=== PATIENT | female | born 1965 | race Caucasian/White ===

== ENCOUNTER 2016-11-02 15:06 | Emergency (ER) | payer OTHER, MEDICAID ==
--- NOTE | 2016-11-02 16:20 | EDPHY ---
H & P Stated Complaint: fell from chair today has VPS and on blood thinners Time Seen by Provider: 11/02/16 15:17 HPI/ROS: CHIEF COMPLAINT: Fall out of electric wheelchair, head trauma, anticoagulated HISTORY OF PRESENT ILLNESS: The patient presents to the ED for evaluation of head trauma after a fall out of an electric wheelchair. She fell forward striking her head. She sustained a fairly large frontal hematoma. She did not lose consciousness. She complains of a mild frontal headache. The patient is currently anticoagulated with Pradaxa. She denies any extremity pain, neck pain , abdominal pain or other acute complaints. REVIEW OF SYSTEMS: A comprehensive 10 point review of systems is otherwise negative aside from elements mentioned in the history of present illness. 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; bilat congenital hip dysplasia with left hip replacement; cerebral palsy ; congential hydrocephalus 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 [employer] shunt left side neck;depression; developmental disability;dysthymia;early scoliosis;hypothyroidism;lower extremity edema; colitis; LEE ANN;osteoporosis;hysterectomy;seziure disorder - Social History Smoking Status: Never smoked Alcohol Use: None Drug Use: None - Physical Exam Exam: General Appearance: Alert, no distress Head: Frontal hematoma Eyes: Pupils equal, round, reactive ENT, Mouth: No hemotympanum, no oral trauma Neck: Nontender, trachea midline Respiratory: No chest wall tender, subcutaneous air, lungs clear bilaterally Cardiovascular: Regular rate and rhythm Abdomen: Abdomen is soft and nontender, pelvis stable Skin: No lacerations, No abrasion Back: No midline T/L/S pain Extremities: Nontender, full range of motion Constitutional: Initial Vital Signs Temperature (C) 36.8 C 11/02/16 15:11 Heart Rate 70 11/02/16 15:11 Respiratory Rate 16 11/02/16 15:11 Blood Pressure 115/81 H 11/02/16 15:11 O2 Sat (%) 97 11/02/16 15:11 O2 Delivery Mode Room Air Allergies/Adverse Reactions: vancomycin [Vancomycin] Allergy (Intermediate, Verified 02/04/14 16:34) swells up Home Medications: Medication Instructions Recorded Alendronate Sodium [Fosamax 70 MG 70 mg PO Q7D@0700 11/23/13 (*)] Calcium Carb W/Vit D [Calcium Carb 500 mg PO TID 11/23/13 W/Vit D 500/200 (*)] Cetirizine [ZyrTEC 10 mg (*)] 10 mg PO DAILY 11/23/13 Cholecalciferol Vit D3 [Vitamin D3 2,000 units PO DAILY 11/23/13 (*)] Gabapentin [Neurontin] 1,200 mg PO TID 11/23/13 Levothyroxine [Synthroid 175 mcg 175 mcg PO DAILY06 11/23/13 (*)] Venlafaxine HCl [Venlafaxine HCl 150 mg PO DAILY 11/23/13 ER] Warfarin Sodium [Coumadin 3MG (*)] 3 mg PO SUTUTHSA@16 11/23/13 acetaZOLAMIDE [Diamox] 250 mg PO QAM 11/23/13 Calamine/Zinc Oxide [Baby Anti 1 bong TP PRN PRN 04/18/14 Monkey Butt Cream] Diclofenac Sodium [Voltaren Gel 1 bong TP TID PRN 04/18/14 (*)] Herbals/Supplements -Info Only 1 ea PO DAILY 04/18/14 Mineral Oil/Petrolatum,White 1 bong TP BID 04/18/14 [Eucerin Cream (*)] Multivitamins W-Minerals [Thera M 1 each PO DAILY 04/18/14 Plus Tablet (*)] Nystatin/Triamcin [Mycolog II 1 bong TP BID PRN 04/18/14 Cream] Phenytoin Sodium Extended 100 mg PO DAILY 04/18/14 [Dilantin (*)] Phenytoin Sodium Extended 200 mg PO HS 04/18/14 [Dilantin (*)] Psyllium Husk (with Sugar) 1 each PO DAILY 04/18/14 [Metamucil Packet] Warfarin Sodium [Coumadin 3MG (*)] 1.5 mg PO MOWEFR@16 04/18/14 Oxycodone Ir [Oxy Ir 5 mg (RX)] 5 - 10 mg PO Q4 PRN #30 tab 04/23/14 Rivaroxaban [Xarelto] 11/02/16 Medical Decision Making - Diagnostics Imaging: CT head without contrast: Images reviewed by myself and discussed with radiologist and negative for intracranial hemorrhage or skull fracture. ED Course/Re-evaluation: The patient presents to the ED for evaluation of head trauma, scalp hematoma while anticoagulated with Pradaxa. She did have a mild frontal headache and underwent CT scan of the brain which demonstrated no evidence of intracranial hemorrhage or skull fracture. The patient is noted to have a normal neurologic examination. Because she is anticoagulated she will be discharged home with customary return precautions that she return immediately for headache, vomiting , altered mental status or other concerns as this may be the sign of a delayed intracranial hemorrhage. Differential Diagnosis: Differential diagnosis considered includes skull fracture, intracranial hemorrhage, frontal hematoma, concussion Departure - Departure Disposition: Home, Routine, Self-Care Clinical Impression: Head injury Qualifiers: Encounter type: initial encounter Qualifier Code: (S09.90XA) Unspecified injury of head, initial encounter Traumatic hematoma of forehead Qualifiers: Encounter type: initial encounter Qualifier Code: (S00.83XA) Contusion of other part of head, initial encounter Condition: Good Instructions: Head Injury (ED) Additional Instructions: 1. Please return to the emergency department for any worsening headache, vomiting, numbness, weakness or other concerns. 2. Your CT scan today demonstrates no evidence of a skull fracture or internal bleeding. 3. Ice pack as directed.
--- NOTE | 2016-11-02 16:27 | CT ---
CT Head Without Contrast, 1605 History: Fell from wheelchair, hit head on concrete sidewalk. Technique: Noncontrast images through the head. Soft tissue and bone window evaluation is performed. Dose reduction techniques were utilized. Comparison: April 22, 2014 Findings: A right posterior parietal shunt tube remains in place with tip in the posterior horn of th e right lateral ventricle. Enlarged ventricles and a large area of right parietal encephalomalacia ar e stable. Cerebral atrophy is unchanged There is no evidence for hemorrhage, mass lesion, acute infar ction, intracranial edema, hydrocephalus or abnormal intracranial calcification. No subarachnoid bloo d is identified. There is no midline shift. The ambient cistern is patent. Bone window evaluation rev eals normally aerated paranasal and mastoid sinuses. There is no evidence of pneumocephalus or subdur al hematoma. The skull is diffusely thick raising the possibility of chronic Dilantin therapy. A righ t parietal bone flap and left parietal dural calcifications are unchanged. The paranasal and mastoid sinuses and both middle ears are normally aerated. There is no basilar, facial or frontal skull fract ure. Impression: Nothing acute identified. Final concordant results were called and discussed with Katy Whitfield M.D., at 11/02/2016 16:25 General information for patients regarding this examination can be found at [email or web address]. If you have questions or comments about this report, please contact me at [phone] (hospital) or [phone] (cell).
[2016-11-02 16:42] VITALS: BP 126/83; PULSE 81; RESP 18; TEMP 98.1; O2SAT 96
== END 2016-11-02 16:41 | disposition home or self-care (01) ==
DX: S00.83XA Contusion of other part of head, initial encounter (principal); Z79.01 Long term (current) use of anticoagulants; V00.811A Fall from moving wheelchair (powered), initial encounter

== ENCOUNTER → 2016-11-17 | Outpatient (CLI) | payer OTHER, MEDICAID | LOC: BMCIMAGING 16:04 | PROVIDERS: ATTEND Internal Medicine | DX: R07.81 Pleurodynia (principal); W05.0XXA Fall from non-moving wheelchair, initial encounter ==

== ENCOUNTER → 2016-12-26 | Outpatient (CLI) | payer OTHER, MEDICAID | LOC: CIMAGING 10:18 | DX: Z12.31 Encounter for screening mammogram for malignant neoplasm of breast (principal) | CPT/HCPCS: G0202 ==

== ENCOUNTER → 2017-04-17 | Outpatient (CLI) | payer OTHER, MEDICAID | LOC: BMCIMAGING 09:20 | PROVIDERS: ATTEND Internal Medicine | DX: M53.3 Sacrococcygeal disorders, not elsewhere classified (principal); M16.11 Unilateral primary osteoarthritis, right hip; Z99.3 Dependence on wheelchair ==

== ENCOUNTER → 2017-04-24 | Outpatient (CLI) | payer OTHER, MEDICAID | LOC: BMCIMAGING 09:10 | PROVIDERS: ATTEND Internal Medicine | DX: R74.8 Abnormal levels of other serum enzymes (principal) ==

== ENCOUNTER → 2017-06-05 | Outpatient (CLI) | payer OTHER, MEDICAID | LOC: BMCIMAGING 12:05 | PROVIDERS: ATTEND Internal Medicine | DX: Z03.89 Encounter for observation for other suspected diseases and conditions ruled out (principal); M25.512 Pain in left shoulder ==

== ENCOUNTER → 2017-07-03 | Outpatient (CLI) | payer OTHER, MEDICAID | LOC: FIMAGING 09:29 | PROVIDERS: ATTEND Psychiatry & Neurology Neurology | DX: Q03.9 Congenital hydrocephalus, unspecified (principal); Z98.2 Presence of cerebrospinal fluid drainage device; G93.89 Other specified disorders of brain ==

== ENCOUNTER → 2017-07-14 | Outpatient (CLI) | payer OTHER, MEDICAID | LOC: FIMAGING 12:40 | PROVIDERS: ATTEND Physician Assistant Surgical | DX: M50.20 Other cervical disc displacement, unspecified cervical region (principal); M48.02 Spinal stenosis, cervical region; E88.2 Lipomatosis, not elsewhere classified; M48.54XD Collapsed vertebra, not elsewhere classified, thoracic region, subsequent encounter for fracture with routine healing; Q03.9 Congenital hydrocephalus, unspecified ==

== ENCOUNTER → 2017-07-24 | Outpatient (CLI) | payer OTHER, MEDICAID | LOC: FIMAGING 09:41 | PROVIDERS: ATTEND Physician Assistant Surgical | DX: M54.2 Cervicalgia (principal); S92.045D Nondisplaced other fracture of tuberosity of left calcaneus, subsequent encounter for fracture with routine healing; Z98.2 Presence of cerebrospinal fluid drainage device ==

== ENCOUNTER → 2018-01-08 | Outpatient (CLI) | payer OTHER, MEDICAID | LOC: CIMAGING 09:59 | PROVIDERS: ATTEND Internal Medicine | DX: Z12.31 Encounter for screening mammogram for malignant neoplasm of breast (principal); Z99.3 Dependence on wheelchair ==

== ENCOUNTER → 2018-07-27 | Outpatient (CLI) | payer OTHER, MEDICAID | LOC: BMCIMAGING 12:07 | PROVIDERS: ATTEND Internal Medicine | DX: J98.11 Atelectasis (principal) ==

== ENCOUNTER → 2018-08-03 | Outpatient (CLI) | payer OTHER, MEDICAID | LOC: BMCIMAGING 12:00 | PROVIDERS: ATTEND Internal Medicine | DX: R05 Cough (principal) ==

== ENCOUNTER → 2018-08-31 | Outpatient (CLI) | payer OTHER, MEDICAID | LOC: BMCIMAGING 11:04 | PROVIDERS: ATTEND Internal Medicine | DX: M81.0 Age-related osteoporosis without current pathological fracture (principal); M43.8X4 Other specified deforming dorsopathies, thoracic region; M43.8X6 Other specified deforming dorsopathies, lumbar region; M43.8X8 Other specified deforming dorsopathies, sacral and sacrococcygeal region; M41.84 Other forms of scoliosis, thoracic region ==

== ENCOUNTER → 2019-02-05 | Outpatient (CLI) | payer OTHER, MEDICAID | LOC: CIMAGING 09:55 | PROVIDERS: ATTEND Internal Medicine | DX: Z12.31 Encounter for screening mammogram for malignant neoplasm of breast (principal) ==